=== PATIENT | female | born 1965 | race African-American/Black ===

== ENCOUNTER 2018-12-17 11:10 | Emergency (ER) | payer MEDICAID ==
[~2018-12-17] VITALS: Ht 160 cm; Wt 68.0 kg
[2018-12-17] MEDS ORDERED: PAXIL10 MG/5 ML PO (11:13)
[2018-12-17] MEDS ORDERED: [UNRECOGNIZED DRUG - OTHER] MC (11:13)
[2018-12-17] MEDS ORDERED: HYDROCHLOROTH12.5 M2 ORAL (11:13)
[2018-12-17] MEDS ORDERED: CLONIDINE HCL0.1 MG PO (11:13)
[2018-12-17] MEDS ORDERED: ZOLOFT25 MG ORAL (11:13)
[2018-12-17] MEDS ORDERED: ATENOLOL5 GM MC (11:13)
--- NOTE | 2018-12-17 11:15 | NUR ---
ED Nurse Note: Pt brought in by clara cool due to migraine x 1 week and muscgular CP x 3 days. Per EMS, pt had a ff up with her PCP and had muscular CP. Referred to ED for further Evaluation. Pt is AAO x4, ambulates with steady gait with unlabored breathing. Pt speaks in full sentences over her phone.
[2018-12-17] MEDS ORDERED: DiphenhydrAMINE 50mg/ml Inj IVP ONE (12:00)
[2018-12-17] MEDS ORDERED: Ketorolac 30mg Inj IV ONE (12:00)
[2018-12-17 12:08] VITALS: BP 154/109
[2018-12-17 12:31] LABS: BASOPHILS % (AUTO) 1.2 % (0.0-2.0); EOSINOPHILS % (AUTO) 3.6 % (0.0-3.0); HEMATOCRIT 36.8 % (37.0-47.0); HEMOGLOBIN 11.7 G/DL (12.0-16.0); LYMPHOCYTES % (AUTO) 38.9 % (20.0-45.0); MEAN CORPUSCULAR VOLUME 81 FL (80-99); NEUTROPHILS % (AUTO) 48.4 % (45.0-75.0); PLATELET COUNT 276 K/UL (150-450); RED BLOOD COUNT 4.54 M/UL (4.20-5.40); RED CELL DISTRIBUTION WIDTH 13.7 % (11.6-14.8); WHITE BLOOD COUNT 6.5 K/UL (4.8-10.8)
[2018-12-17 13:07] LABS: ANION GAP 8 mmol/L (5-15); BLOOD UREA NITROGEN 13 mg/dL (7-18); CALCIUM 9.5 MG/DL (8.5-10.1); CARBON DIOXIDE 27 MMOL/L (21-32); CHLORIDE 103 MMOL/L (98-107); CREATININE 0.7 MG/DL (0.55-1.30); SODIUM 138 MMOL/L (136-145)
[2018-12-17 13:10] LABS: ALANINE AMINOTRANSFERASE 32 U/L (12-78); ALBUMIN 3.7 G/DL (3.4-5.0); ALKALINE PHOSPHATASE 79 U/L (46-116); ASPARTATE AMINO TRANSFERASE 28 U/L (15-37); BILIRUBIN,TOTAL 0.4 MG/DL (0.2-1.0)
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
[2018-12-17] MEDS ORDERED: Norco 5mg/325mg tab ORAL ONE (14:00)
[2018-12-17] MEDS ORDERED: cloNIDine 0.2mg Tab ORAL ONE (15:30)
[2018-12-17 15:41] VITALS: BP 184/89
[2018-12-17 16:03] VITALS: BP 184/89
--- NOTE | 2018-12-17 16:04 | NUR ---
ED Nurse Note: pt cleared to d/c per ER provider order, pt discharge instruction provided w/prescription given. pt advised to follow up with pcp or return to ed if s/s worsen or new s/s develop, pt education done via discussion and hand out, patient verbalized understanding. ID wristband removed, pt vss, ambulatory w/ steady gait, respiration even and unlabored, airway intact, pt left with all belongings.
== END 2018-12-17 16:04 | disposition home or self-care (01) ==
LOC: EDBD 11:10 → EMR 11:27
DX: G43.909 Migraine, unspecified, not intractable, without status migrainosus (principal); G89.29 Other chronic pain; I10 Essential (primary) hypertension; Z86.73 Personal history of transient ischemic attack (TIA), and cerebral infarction without residual deficits
CPT/HCPCS: 36415; 80053; 80307; 84484; 85025; 96361; 96374; 96375; 99284; J0780; J1200; J1885